=== PATIENT | female | born 1955 | race Two or more races ===

== ENCOUNTER 2020-01-02 15:17 | Emergency (ER) | payer MEDICAID ==
[~2020-01-02] VITALS: Ht 160 cm; Wt 63.5 kg
[2020-01-02 15:45] VITALS: BP 136/71
--- NOTE | 2020-01-02 15:45 | NUR ---
ED Nurse Note: PT FROM HOME AND WALKED TO ED DUE TO LLQ ABD PAIN AND NON RADIATING SINCE SEPTEMBER 2019. PT REPORTS SHE VOMITS WHENEVER SHE EATS SOMETHING. STATES SHE LOST 40LBS SINCE THEN. DENIES FEVER, CHILLS OR DIARRHEA. AAO X4 AND AMBULATORY.
[2020-01-02] MEDS ORDERED: Omnipaque-300 100ml vial INJ PRN (16:00)
--- NOTE | 2020-01-02 16:12 | NUR ---
ED Nurse Note: COLLECTED BLOOD/URINE THEN SENT.
--- NOTE | 2020-01-02 16:18 | Diagnostic Imaging Report ---
Indication: Dyspnea Comparison: None A single view chest radiograph was obtained. Findings: No definite infiltrate or pulmonary vascular congestion identified. The heart is normal in size. The aorta is mildly enlarged consistent with atherosclerotic vascular disease. The bones are osteopenic. Impression: No acute disease
[2020-01-02 16:32] LABS: BASOPHILS % (AUTO) 0.8 % (0.0-2.0); EOSINOPHILS % (AUTO) 3.1 % (0.0-3.0); HEMATOCRIT 40.1 % (37.0-47.0); HEMOGLOBIN 12.6 G/DL (12.0-16.0); LYMPHOCYTES % (AUTO) 23.6 % (20.0-45.0); MEAN CORPUSCULAR VOLUME 90 FL (80-99); MONOCYTES % (AUTO) 9.6 % (1.0-10.0); PLATELET COUNT 190 K/UL (150-450); RED BLOOD COUNT 4.46 M/UL (4.20-5.40); RED CELL DISTRIBUTION WIDTH 13.1 % (11.6-14.8); WHITE BLOOD COUNT 5.8 K/UL (4.8-10.8)
[2020-01-02 16:36] LABS: APPEARANCE,URINE SLIGHTLY CLOUDY; BILIRUBIN, URINE NEGATIVE (NEGATIVE); GLUCOSE, URINE (UA) NEGATIVE (NEGATIVE); KETONES,URINE 1+ (NEGATIVE); LEUKOCYTE ESTERASE ,URINE 1+ (NEGATIVE); NITRITE,URINE NEGATIVE (NEGATIVE); PH,URINE 5 (4.5-8.0); PROTEIN,URINE 1+ (NEGATIVE); UROBILINOGEN,URINE 1 MG/DL (0.0-1.0)
[2020-01-02 16:44] LABS: ANION GAP 8 mmol/L (5-15); BLOOD UREA NITROGEN 10 mg/dL (7-18); CALCIUM 9.1 MG/DL (8.5-10.1); CARBON DIOXIDE 29 MMOL/L (21-32); CHLORIDE 106 MMOL/L (98-107); CREATININE 0.8 MG/DL (0.55-1.30); POTASSIUM 3.4 MMOL/L (3.5-5.1); SODIUM 143 MMOL/L (136-145)
[2020-01-02 16:49] LABS: ALANINE AMINOTRANSFERASE 14 U/L (12-78); ALBUMIN 3.3 G/DL (3.4-5.0); ALBUMIN/GLOBULIN RATIO 0.9 (1.0-2.7); ALKALINE PHOSPHATASE 76 U/L (46-116); ASPARTATE AMINO TRANSFERASE 16 U/L (15-37); BILIRUBIN,TOTAL 0.4 MG/DL (0.2-1.0)
[2020-01-02 16:50] LABS: COLOR,URINE YELLOW
--- NOTE | 2020-01-02 17:31 | Emergency Room Report ---
History of Present Illness General Chief Complaint: Abdominal Pain Source: Patient Present Illness HPI 64-year-old female with no significant past medical history here complaining of 3 months of epigastric abdominal pain and multiple bouts of emesis post eating any type of food and drinking water. Denies any recent history, fever and chills. Complains of 40 pounds weight loss since the onset of her symptoms. Denies diarrhea and constipation. Denies bloody emesis. Denies acid reflux. Denies eating spicy and acidic food. Denies history of tobacco smoking alcohol intake. Reports feeling fatigued. Denies chest pain, shortness of breath, palpitation, headache and dizziness. Has not taken medication for symptom relief. Has not yet been seen by primary care provider in this regard. Allergies: Coded Allergies: No Known Allergies (Unverified , 01/02/20) Patient History Past Medical History: see triage record Past Surgical History: none Pertinent Family History: none Now: No Immunizations: UTD Reviewed Nursing Documentation: PMH: Agreed; PSxH: Agreed Nursing Documentation-PMH Past Medical History: No Stated History Review of Systems All Other Systems: negative except mentioned in HPI Physical Exam Vital Signs Date Time Temp Pulse Resp B/P (MAP) Pulse Ox O2 Delivery O2 Flow Rate FiO2 01/02/20 15:35 98.1 54 14 147/73 (97) 95 Room Air Sp02 EP Interpretation: reviewed, normal General Appearance: no apparent distress, alert, GCS 15, non-toxic Head: normocephalic, atraumatic Eyes: bilateral eye normal inspection, bilateral eye PERRL ENT: hearing grossly normal, normal pharynx, no angioedema, normal voice Neck: full range of motion, supple/symm/no masses Respiratory: chest non-tender, lungs clear, normal breath sounds, no rhonchi, no wheezing, speaking full sentences Cardiovascular #1: regular rate, rhythm, no edema, no murmur Cardiovascular #2: 2+ radial (R), 2+ radial (L), 2+ dorsalis pedis (R), 2+ dorsalis pedis (L) Gastrointestinal: normal bowel sounds, non tender, soft, no organomegaly, no peritonitis, no bruit, non-distended, no guarding, no pulsatile mass, no rebound Rectal: deferred Genitourinary: no CVA tenderness Musculoskeletal: back normal Neurologic: alert, motor strength/tone normal, oriented x3, sensory intact, responsive, speech normal Psychiatric: judgement/insight normal, memory normal, mood/affect normal, no suicidal/homicidal ideation Skin: no rash Lymphatic: no adenopathy Medical Decision Making PA Attestation All diagnoses and treatment plans were reviewed and discussed with my supervising physician Dr. 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 Denies any recent history, fever and chills. Complains of 40 pounds weight loss since the onset of her symptoms. Denies diarrhea and constipation. Denies bloody emesis. Denies acid reflux. Denies eating spicy and acidic food. Denies history of tobacco smoking alcohol intake. Reports feeling fatigued. Denies chest pain, shortness of breath, palpitation, headache and dizziness. Has not taken medication for symptom relief. Has not yet been seen by primary care provider in this regard. Ddx considered but are not limited to: appendicitis, cholecystis, gastritis, gastroenteritis, UTI, pyelonephritis, SBO, diverticulitis, influenza with GI manifestation, NE, gastric ulcer, gastric cancer Vital signs: are WNL, pt. is afebrile H&PE are most consistent with: Gastric mass, metastatic mass noted in the abdomen UTI, ovarian mass ORDERS: abdominal CT, abdominal pain set, EKG, omeprazole, Zofran, Tylenol, Tylenol 3 ED INTERVENTIONS: NS bolus, Pepcid, Zofran, Toradol DISCHARGE: At this time pt. is stable for d/c to home. Will provide printed patient care instructions, and any necessary prescriptions. Care plan and follow up instructions have been discussed with the patient prior to discharge. Advised patient to follow-up with technology analyst for biopsy of the gastric mass, due to patient not having insurance advised patient to go to either [facility] or [facility]. At this time she understands that we can only use symptom relief. Patient to increase oral hydration. If worsening symptoms return to the emergency room. EKG Diagnostic Results Rate: bradycardiac Rhythm: other - Bradycardia ST Segments: no acute changes Other Impression No acute ST changes Chest X-Ray Diagnostic Results Chest X-Ray Diagnostic Results : Chest X-Ray Ordered: Yes # of Views/Limited/Complete: 1 View Indication: Other EP Interpretation: Yes PA Xray: Interpretation reviewed, by supervising MD, and agrees with findings. Interpretation: no consolidation, no effusion, no pneumothorax Impression: No acute disease Electronically Signed by: Terra Call PA-C CT/MRI/US Diagnostic Results CT/MRI/US Diagnostic Results : Imaging Test Ordered: CT abdomen pelvis with contrast Impression FINDINGS: Lung bases: Mild atelectasis at the lung bases. ABDOMEN: Liver: There are at least 2 small nonspecific low-density lesions in the liver which are too small to adequately characterize. The largest is in the posterior segment of the right lobe and measures 6 mm. Gallbladder and bile ducts: The gallbladder is unremarkable. No calcified stones. No ductal dilation. Pancreas: The pancreas is unremarkable. No ductal dilation. Spleen: The spleen is unremarkable. Adrenals: The adrenals are unremarkable. Kidneys and ureters: Small low-density lesion in the right kidney which is too small to adequately characterize. Mild prominence of the renal collecting systems without evidence for ureteral stone. This is likely related to the bladder being distended. Stomach and bowel: Evaluation of the body/antrum the stomach is limited secondary to poor distention. Some wall thickening is suspected of the body/ antrum of the stomach. A malignant neoplastic process should be considered. Differential diagnostic considerations include, but are not limited to, an acute infectious/inflammatory process. The stomach proximal to the suspected wall thickening demonstrates some distention. An at least partial obstructive process should be considered. No evidence for bowel related inflammatory changes. PELVIS: Appendix: The appendix is mildly prominent measuring up to 7 mm. Mild acute appendicitis cannot be excluded. Correlation with clinical findings is recommended. Bladder: Distention of the bladder. Reproductive: Cystic lesions with septations and some peripheral nodularity is seen within the ovaries. The largest is on the right and measures 10.8 x 6.5 cm in maximum transverse dimensions. Metastatic disease or a primary neoplastic process should be considered. The uterus is grossly unremarkable. ABDOMEN and PELVIS: Intraperitoneal space: Some nodularity is noted of the omentum. Metastatic disease should be considered. Small amount of ascites. No free air. Bones/joints: Degenerative changes of the thoracolumbar spine. No acute fracture. No dislocation. Soft tissues: Very small umbilical hernia containing fat only. Vasculature: Mild atherosclerotic calcifications in the aorta. No abdominal aortic aneurysm. Lymph nodes: Unremarkable. No enlarged lymph nodes. IMPRESSION: 1. Evaluation of the body/antrum the stomach is limited secondary to poor distention. Some wall thickening is suspected of the body/antrum of the stomach. A malignant neoplastic process should be considered. Differential diagnostic considerations include, but are not limited to, an acute infectious/ inflammatory process. 2. The stomach proximal to the suspected wall thickening demonstrates some distention. An at least partial obstructive process should be considered. 3. The appendix is mildly prominent measuring up to 7 mm. Mild acute appendicitis cannot be excluded. Correlation with clinical findings is recommended. 4. Some nodularity is noted of the omentum. Metastatic disease should be considered. 5. Cystic lesions with septations and some peripheral nodularity is seen within the ovaries. The largest is on the right and measures 10.8 x 6.5 cm in maximum transverse dimensions. Metastatic disease or a primary neoplastic process should be considered. Radiologist: Venu Coley M.D. Electronically Signed: 01/02/20 20:00 Last Vital Signs Date Time Temp Pulse Resp B/P (MAP) Pulse Ox O2 Delivery O2 Flow Rate FiO2 01/02/20 15:45 58 16 Room Air 01/02/20 15:45 98.1 136/71 97 Disposition: HOME, SELF-CARE Condition: Stable Scripts Nitrofurantoin Monohyd/M-Cryst* (MACROBID 100 MG*) 100 Mg Capsule 100 MG ORAL EVERY 12 HOURS for 7 Days, #14 CAP Prov: Terra Torres 01/02/20 Acetaminophen With Codeine (T#3) (TYLENOL #3 TAB*) Y Tab 1 TAB ORAL Q8HR PRN for For Pain for 3 Days, #10 TAB Prov: Terra Torres 01/02/20 Acetaminophen* (TYLENOL EXTRA STRENGTH*) 500 Mg Tablet 500 MG ORAL Q8H PRN for Prn Headache/Temp > 101, #30 TAB 0 Refills Prov: Terra Torres 01/02/20 Omeprazole (OMEPRAZOLE) 20 Mg Tablet.dr 20 MG ORAL DAILY, #30 TAB Prov: Terra Torres 01/02/20 Ondansetron (Zofran) 4 Mg Tablet 4 MG ORAL Q6H PRN for Nausea & Vomiting, #14 TAB Prov: Terra Torres 01/02/20 Referrals: [facility],REFERRING (PCP) Patient Instructions: Abdominal Pain, Adult Additional Instructions: Follow-up with a technology analyst. Biopsy of the gastric mass, you need to be seen immediately by technology analyst, you can go to [facility] due to lack of insurance and lack of having primary care provider. If worsening symptoms return to the emergency room Terra Torres Jan 02, 2020 17:31
[2020-01-02 17:47] VITALS: BP 159/70
--- NOTE | 2020-01-02 19:03 | NUR ---
ED Nurse Note: PT WITH NO DISTRESS. FAMILY MEMBERS AT THE BED SIDE.
--- NOTE | 2020-01-02 19:05 | NUR ---
ED Nurse Note: STILL WAITING FOR CT TO DO PROCEDURE. RICKEY/JUDITH AWARE.
--- NOTE | 2020-01-02 19:24 | NUR ---
HAND-OFF: Report given to LATONIA SAHNI.
--- NOTE | 2020-01-02 19:35 | NUR ---
ED Nurse Note: Recieved report to resume care, pt in bed awake and alert and oriented x 4, family at bedside, pt waiting for results and disposition, pain at 7/10 but declines toradol ordered, [employer] informed, v/s stable, no cp, no sob, will resume care as ordered and closely monitor.
--- NOTE | 2020-01-02 20:01 | Diagnostic Imaging Report ---
EXAM: CT Abdomen and Pelvis With Intravenous Contrast CLINICAL HISTORY: ABD PAIN TECHNIQUE: Axial computed tomography images of the abdomen and pelvis with intravenous contrast. CTDI is 4.1 mGy and DLP is 222.4 mGy-cm. One or more of the following dose reduction techniques were used: automated exposure control, adjustment of the mA and/or kV according to patient size, use of iterative reconstruction technique. Coronal and sagittal reformatted images were created and reviewed. COMPARISON: No relevant prior studies available. FINDINGS: Lung bases: Mild atelectasis at the lung bases. ABDOMEN: Liver: There are at least 2 small nonspecific low-density lesions in the liver which are too small to adequately characterize. The largest is in the posterior segment of the right lobe and measures 6 mm. Gallbladder and bile ducts: The gallbladder is unremarkable. No calcified stones. No ductal dilation. Pancreas: The pancreas is unremarkable. No ductal dilation. Spleen: The spleen is unremarkable. Adrenals: The adrenals are unremarkable. Kidneys and ureters: Small low-density lesion in the right kidney which is too small to adequately characterize. Mild prominence of the renal collecting systems without evidence for ureteral stone. This is likely related to the bladder being distended. Stomach and bowel: Evaluation of the body/antrum the stomach is limited secondary to poor distention. Some wall thickening is suspected of the body/antrum of the stomach. A malignant neoplastic process should be considered. Differential diagnostic considerations include, but are not limited to, an acute infectious/inflammatory process. The stomach proximal to the suspected wall thickening demonstrates some distention. An at least partial obstructive process should be considered. No evidence for bowel related inflammatory changes. PELVIS: Appendix: The appendix is mildly prominent measuring up to 7 mm. Mild acute appendicitis cannot be excluded. Correlation with clinical findings is recommended. Bladder: Distention of the bladder. Reproductive: Cystic lesions with septations and some peripheral nodularity is seen within the ovaries. The largest is on the right and measures 10.8 x 6.5 cm in maximum transverse dimensions. Metastatic disease or a primary neoplastic process should be considered. The uterus is grossly unremarkable. ABDOMEN and PELVIS: Intraperitoneal space: Some nodularity is noted of the omentum. Metastatic disease should be considered. Small amount of ascites. No free air. Bones/joints: Degenerative changes of the thoracolumbar spine. No acute fracture. No dislocation. Soft tissues: Very small umbilical hernia containing fat only. Vasculature: Mild atherosclerotic calcifications in the aorta. No abdominal aortic aneurysm. Lymph nodes: Unremarkable. No enlarged lymph nodes. IMPRESSION: 1. Evaluation of the body/antrum the stomach is limited secondary to poor distention. Some wall thickening is suspected of the body/antrum of the stomach. A malignant neoplastic process should be considered. Differential diagnostic considerations include, but are not limited to, an acute infectious/inflammatory process. 2. The stomach proximal to the suspected wall thickening demonstrates some distention. An at least partial obstructive process should be considered. 3. The appendix is mildly prominent measuring up to 7 mm. Mild acute appendicitis cannot be excluded. Correlation with clinical findings is recommended. 4. Some nodularity is noted of the omentum. Metastatic disease should be considered. 5. Cystic lesions with septations and some peripheral nodularity is seen within the ovaries. The largest is on the right and measures 10.8 x 6.5 cm in maximum transverse dimensions. Metastatic disease or a primary neoplastic process should be considered. <MYCVCSECTION> Communications: 01/02/20 20:25 Verify Receipt Verified receipt with jay for dr. carrington on 01/02 20:25 (-08:00)
[2020-01-02 20:15] VITALS: BP 151/79
[2020-01-02] MEDS ORDERED: Ketorolac 30mg Inj IV ONE (20:15)
[2020-01-02 20:35] VITALS: BP 147/77
[2020-01-02] MEDS ORDERED: NITROFURANTOIN100 M2 ORAL (20:41)
[2020-01-02] MEDS ORDERED: OMEPRAZOLE20 M3 ORAL (20:41)
[2020-01-02] MEDS ORDERED: ACETAMINOPHEN-1 EAC1 ORAL (20:41)
[2020-01-02] MEDS ORDERED: ZOFRAN4 M1 ORAL (20:41)
[2020-01-02] MEDS ORDERED: TYLENOL EXTRA500 MG ORAL (20:41)
[2020-01-02 20:50] VITALS: BP 147/77
--- NOTE | 2020-01-02 20:50 | NUR ---
ER DISCHARGE NOTE: Patient is cleared to be discharged per ERMD, pt is aox4, on room air, with stable vital signs. pt was given dc and prescription instructions, pt was able to verbalize understanding, pt id band and iv site removed without complications. pt is able to ambulate with steady gait. pt took all belongings.
== END 2020-01-02 20:50 | disposition home or self-care (01) ==
LOC: EMR 16:19
DX: K31.9 Disease of stomach and duodenum, unspecified (principal); N39.0 Urinary tract infection, site not specified; C76.2 Malignant neoplasm of abdomen; N83.201 Unspecified ovarian cyst, right side; M85.80 Other specified disorders of bone density and structure, unspecified site
CPT/HCPCS: 36415; 71045; 74177; 80053; 81003; 83690; 84484; 85025; 85610; 85730; 93005; 96361; 96374; 96375; J2405; J7030; Q9967; S0028; Z7502; 99284